=== PATIENT | male | born 1955 ===

== ENCOUNTER 2018-07-25 18:50 | Emergency (ER) | payer MEDICAID ==
[2018-07-25 18:54] VITALS: BMI 29.0
[2018-07-25 18:58] VITALS: TEMP 97.7
--- NOTE | 2018-07-25 19:13 | ED PDOC ---
Arrival/HPI - General Chief Complaint: Dizziness/Lightheaded Time Seen by Provider: 07/25/18 19:05 - History of Present Illness Narrative History of Present Illness (Text): 62 y/o M c PMHx hypertension, DM p/w lightheadedness earlier today. Patient was visiting someone in the hospital and he became lightheaded with mild abdominal pain and posterior headache. He states that all symptoms are now gone and he feels normal. He denies any LOC, vomiting, dyspnea. Past Medical History - Cardiac Hx Cardiac Disorders: Yes Hx Hypertension: Yes - Pulmonary Hx Respiratory Disorders: No - Neurological Hx Neurological Disorder: No - HEENT Hx HEENT Disorder: No - Renal Hx Renal Disorder: No - Endocrine/Metabolic Hx Endocrine Disorders: Yes Hx Diabetes Mellitus Type 1: Yes - Hematological/Oncological Hx Blood Disorders: No - Integumentary Hx Dermatological Disorder: No - Musculoskeletal/Rheumatological Hx Musculoskeletal Disorders: Yes Hx Arthritis: Yes - Gastrointestinal Hx Gastrointestinal Disorders: No - Genitourinary/Gynecological Hx Genitourinary Disorders: No - Psychiatric Hx Psychophysiologic Disorder: No Hx Substance Use: No - Anesthesia Hx Anesthesia: No Family/Social History Family/Social History: No Known Family HX Smoking Status: Never Smoked Hx Alcohol Use: No Hx Substance Use: No Allergies/Home Meds Allergies/Adverse Reactions: Allergies No Known Allergies Allergy (Verified 04/29/15 08:56) Home Medications: Home Meds Medication Instructions Recorded Confirmed Ibuprofen 800 mg PO Q8 PRN 04/29/15 07/25/18 Lisinopril [Zestril] 20 mg PO DAILY 07/25/18 07/25/18 Simvastatin [Zocor] 20 mg PO DAILY 07/25/18 07/25/18 Review of Systems - Physician Review All systems were reviewed & negative as marked: Yes - Review of Systems Respiratory: absent: SOB Cardiovascular: absent: Chest Pain Physical Exam - Physical Exam Narrative Physical Exam (Text): gen nad head nc/at eyes perrl ent mmm neck supple chest no tenderness cv reg rate lungs cta b/l abd soft, nt back no cva tenderness skin no rash extremities no edema neuro alert, no focal deficit Vital Signs Temp Pulse Resp BP Pulse Ox 07/25/18 18:55 97.7 F 54 L 18 135/90 94 L Finger Stick Blood Glucose: 327 Medical Decision Making ED Course and Treatment: ekg sinus rhythm 54 bpm, no ST/T wave changes cxr no acute disease. patient feels well, at baseline. discharged home, f/u pmd, return to ed for worsening dyspnea, dizziness, chest pain, or any other problem. - RAD Interpretation Radiology Orders: 07/25/18 19:11 CHEST PORTABLE [RAD] Stat Disposition/Present on Arrival - Present on Arrival Any Indicators Present on Arrival: No History of DVT/PE: No History of Uncontrolled Diabetes: No Urinary Catheter: No History of Decub. Ulcer: No History Surgical Site Infection Following: None - Disposition Have Diagnosis and Disposition been Completed?: Yes Diagnosis: Lightheaded Disposition: HOME/ ROUTINE Disposition Time: 20:22 Patient Plan: Discharge Condition: GOOD Discharge Instructions (ExitCare): Syncope (Fainting) Print Language: MALTESE Referrals: Miguel A Allan MD [Primary Care Provider] - Follow up with primary Forms: [employer] (Mal[place]ian)
[2018-07-25 19:27] VITALS: RESP 16
[2018-07-25 19:32] LABS: BASO # 0.03 K/mm3 (0.0-2.0); BASO % 0.7 % (0.0-3.0); EOS # 0.3 (0.0-0.7); EOS % 7.2 % (1.5-5.0); HEMOGLOBIN 14.6 g/dL (14.0-18.0); LYMPH # 2.1 (1.2-3.4); LYMPH % 52.9 % (22.0-35.0); MEAN CELL VOLUME 87.6 fl (80.0-105.0); MEAN CORPUSCULAR HEMOGLOBIN 30.2 pg (25.0-35.0); MEAN CORPUSCULAR HGB CONC 34.5 g/dl (31.0-37.0); MEAN PLATELET VOLUME 11.4 fl (7.0-11.0); MONO # 0.3 (0.1-0.6); MONO % 6.9 % (1.0-6.0); RBC 4.83 10^6/uL (3.5-6.1); RED CELL DISTRIBUTION WIDTH 13.1 % (11.5-14.5)
[2018-07-25 19:52] LABS: TROPONIN I < 0.01 ng/mL
[2018-07-25 20:15] LABS: ALB/GLOB RATIO 1.3 (1.1-1.8); ALBUMIN 4.1 g/dL (3.0-4.8); ALT/SGPT 24 U/L (7-56); AST/SGOT 29 U/L (17-59); BLOOD UREA NITROGEN 18 mg/dL (7-21); CALCIUM 9.1 mg/dL (8.4-10.5); GFR NON-AFRICAN AMERICAN > 60; LIPASE 86 U/L (23-300)
[2018-07-25 20:50] VITALS: BP 136/92; PULSE 58; O2SAT 95
--- NOTE | 2018-07-26 11:58 | CARD ---
APPROVED REPORT Date of service: 07/25/2018 EKG Measurement Heart [id number] CT [id number] <Conclusion> Sinus bradycardia Otherwise normal ECG
--- NOTE | 2018-07-30 08:05 | RAD ---
Date of service: 07/25/2018 HISTORY: lightheaded COMPARISON: No prior. TECHNIQUE: 1 view obtained. FINDINGS: LUNGS: No active pulmonary disease. PLEURA: No significant pleural effusion identified, no pneumothorax apparent. CARDIOVASCULAR: No aortic atherosclerotic calcification present. Normal cardiac size. No pulmonary vascular congestion. OSSEOUS STRUCTURES: No significant abnormalities. VISUALIZED UPPER ABDOMEN: Normal. OTHER FINDINGS: None. IMPRESSION: No active disease.
== END 2018-07-25 21:31 | disposition home or self-care (01) ==
LOC: ED 18:50
DX: R42 Dizziness and giddiness (principal); I10 Essential (primary) hypertension; E11.9 Type 2 diabetes mellitus without complications